=== PATIENT | female | born 1945 | race Caucasian/White ===

== ENCOUNTER → 2016-09-24 | Outpatient (CLI) | payer OTHER | LOC: MMPC 09:00 | PROVIDERS: ATTEND Internal Medicine | DX: Z79.01 Long term (current) use of anticoagulants (principal); Z51.81 Encounter for therapeutic drug level monitoring; Z95.2 Presence of prosthetic heart valve | CPT/HCPCS: 85610 ==

== ENCOUNTER → 2016-12-03 | Outpatient (CLI) | payer OTHER | LOC: MMPC 09:00 | PROVIDERS: ATTEND Internal Medicine | DX: Z79.01 Long term (current) use of anticoagulants (principal); Z51.81 Encounter for therapeutic drug level monitoring; Z95.2 Presence of prosthetic heart valve | CPT/HCPCS: 85610 ==

== ENCOUNTER → 2017-01-08 | Outpatient (CLI) | payer OTHER ==
[2017-01-09 06:06] LABS: EST GLOMERULAR FILTRATION > 60 (>60 ml/min/1.73m(2))
[2017-01-09 06:07] LABS: CALCIUM 8.9 mg/dL (8.7-10.7); SERUM ALBUMIN 3.8 g/dL (3.5-4.8)
== END ==
LOC: LAB 08:48
PROVIDERS: ATTEND Internal Medicine
DX: E11.9 Type 2 diabetes mellitus without complications (principal); E78.5 Hyperlipidemia, unspecified; F17.200 Nicotine dependence, unspecified, uncomplicated
CPT/HCPCS: 36415; 80053; 80061; 82043; 82550

== ENCOUNTER → 2017-01-09 | Outpatient (CLI) | payer OTHER | LOC: MMPC 11:11 | PROVIDERS: ATTEND Internal Medicine | DX: E11.9 Type 2 diabetes mellitus without complications (principal); I09.9 Rheumatic heart disease, unspecified; I10 Essential (primary) hypertension; E78.5 Hyperlipidemia, unspecified | CPT/HCPCS: 83037; 99214; G0463 ==

== ENCOUNTER → 2017-02-09 | Outpatient (CLI) | payer OTHER ==
--- NOTE | 2017-02-09 10:28 | DI ---
HISTORY: Dyspnea FINDINGS: The cardiac silhouette is not enlarged. There is prominence of the central vasculature. Midline sternotomy. No focal consolidation or pleural effusion. Prosthetic heart valve. IMPRESSION: 1. Prominence of the central vasculature. 2. No focal consolidation or pleural effusion.
== END ==
LOC: MOB RAD 09:53
PROVIDERS: ATTEND Physician Assistant Medical
DX: R06.00 Dyspnea, unspecified (principal); R06.02 Shortness of breath; J44.1 Chronic obstructive pulmonary disease with (acute) exacerbation; F17.200 Nicotine dependence, unspecified, uncomplicated
CPT/HCPCS: 71020; 94640; 99213; G0463

== ENCOUNTER → 2017-02-27 | Outpatient (CLI) | payer OTHER | LOC: MMPC 09:00 | PROVIDERS: ATTEND Physician Assistant Medical | DX: J41.1 Mucopurulent chronic bronchitis (principal); R09.02 Hypoxemia; J96.11 Chronic respiratory failure with hypoxia; F17.210 Nicotine dependence, cigarettes, uncomplicated | CPT/HCPCS: 99213; G0463 ==

== ENCOUNTER → 2017-03-01 | Outpatient (CLI) | payer OTHER | LOC: MMPC 09:00 | PROVIDERS: ATTEND Physician Assistant Medical | DX: J44.1 Chronic obstructive pulmonary disease with (acute) exacerbation (principal); R09.02 Hypoxemia | CPT/HCPCS: 99213; G0463 ==

== ENCOUNTER 2017-03-29 09:09 | Emergency (ER) | payer OTHER ==
[2017-03-29 10:18] LABS: BASOPHILS # (AUTO) 0.09 10*3/UL; BASOPHILS % (AUTO) 0.7 % (0-1); EOSINOPHILS # (AUTO) 0.12 10*3/UL; HEMATOCRIT 44.5 % (37.0-47.0); HEMOGLOBIN 15.2 g/dL (12.0-16.0); LYMPHOCYTES # (AUTO) 1.34 10*3/uL; MEAN CORPUSCULAR HEMOGLOBIN 25.1 PG (27-31); MEAN CORPUSCULAR HGB CONC 34.2 g/dL (33-37); MEAN CORPUSCULAR VOLUME 73.4 FL (81-99); MEAN PLATELET VOLUME 9.9 FL (7.4-12.2); MONOCYTES # (AUTO) 1.28 10*3/UL (0.3-0.8); MONOCYTES % (AUTO) 10.4 % (5-15); NEUTROPHILS # (AUTO) 9.47 10*3/UL; NEUTROPHILS % (AUTO) 76.6 % (50-80); RED BLOOD COUNT 6.06 10^6/uL (4.20-5.40)
[2017-03-29 10:21] LABS: PLATELET MORPHOLOGY COMMENT NORMAL MORPHOLOGY (NORM); RBC MORPHOLOGY COMMENT NORMAL MORPHOLOGY (NORM); WBC MORPHOLOGY COMMENT NORMAL MORPHOLOGY (NORM)
[2017-03-29 10:22] VITALS: RESP 16; TEMP 96.4
[2017-03-29 10:25] LABS: BLOOD UREA NITROGEN 13 mg/dL (7-22); BUN/CREATININE RATIO 18.57 (6-20); CALCIUM 9.3 mg/dL (8.7-10.7); EST GLOMERULAR FILTRATION > 60 (>60 ml/min/1.73m(2)); SERUM ALBUMIN 4.3 g/dL (3.5-4.8)
[2017-03-29] MEDS: NORMAL SALINE 10 ML SYRINGE FLUSH IVP PRN (10:25)
--- NOTE | 2017-03-29 11:07 | DI ---
EXTREMITY NON-VASCULAR LTD,03/29/2017 9:56 AM: Clinical History: Nontraumatic swelling of the right wrist. Previous Exam: None at this facility. Findings: Multiple grayscale and color Doppler sonographic images are obtained through the right wrist, and dem onstrate no evidence of solid mass nor cystic mass. Flexor tendons are unremarkable. Impression: No evidence of solid or cystic mass of the right wrist.
--- NOTE | 2017-03-29 11:10 | DI ---
XR WRIST 2 VW,03/29/2017 9:31 AM: Clinical History: Right wrist pain Previous Exam: None at this facility. Findings: 2 views of the right wrist are obtained, and demonstrate anatomic alignment without visible fracture. There is some faint calcification within the triangular fibrocartilage complex not seen well on the p rior exam. Advanced degenerative changes of the first carpometacarpal joint are noted which have advanced since the prior exam. Impression: 1. No acute bony injury. 2. Advanced degenerative osteoarthritis of the right first carpometacarpal joint. 3. Calcification of the triangular fibrocartilage complex. This most likely represents hydroxyapatite deposition.
--- NOTE | 2017-03-29 23:39 | PDOC ---
Upper Extremity Problem HPI - General Chief Complaint: Upper Extremity Problem/Injury Stated Complaint: wrist pain Date Seen by Provider: 03/29/17 Time Seen by Provider: 09:20 Source: POSITIVE: Patient Exam Limitations: POSITIVE: No limitations Nurse's Notes Reviewed & Considered: Yes - History of Present Illness Initial Comments: The patient is a 71-year-old female. She states that for the last 14 hours, approximately, she has had pain and some swelling to the dorsum of her right wrist. Patient states that she sustained a right wrist fracture 3 years ago in a fall; she did not have surgery for this injury. Patient has a history of having had a mitral valve replacement and is on Coumadin. She also has a history of tobacco abuse, COPD and type II diabetes mellitus. 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 She smokes about a pack of cigarettes per day. She has not noted any redness or warmth to her right wrist. 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) Severity: Moderate Quality: REPORTS: "Pain" Recent Injury: REPORTS: No Location at Time of Onset: REPORTS: Home Modifying Factors: REPORTS: Movement, Other (Pain is exacerbated by direct palpation over) Associated Symptoms: DENIES: Fever, Chills, Diaphoresis, Shortness of Breath, Difficulty Breathing, Chest Pain, Chest Discomfort, Nausea, Vomiting, Neck Pain , Jaw Pain, Back Pain, See Diagram, Other Similar Symptoms Previously: No Recent Care Received: Denies Any Prior Injuries Related to Current Complaint?: No - Patient Home Medications Home Medications: Home Medications Acetaminophen/Dp-Hydram HCl [Acetaminophen Pm Tablet] 1 each PO 5XW PRN #100 Aspirin 81 mg PO DAILY #30 tab 11/03/12 Calcium Carbonate/Vitamin D3 [Calcium 600 + Vit D 400 Caplet] 1 each PO DAILY # 30 11/03/12 Denosumab [Prolia] 1 ml SUBCUT every 6 months #0 ml 06/22/13 Tramadol HCl 1 tab PO QID PRN #120 tab 08/27/14 Atenolol 1 tab PO BID #180 tab 07/11/16 Atorvastatin Calcium [Lipitor] 1 tab PO DAILY #90 tab 07/11/16 Blood Sugar Diagnostic [Element Test Strips] 1 each IN BID #180 strip 07/11/16 Duloxetine HCl 1 cap PO DAILY #90 cap 07/11/16 Ezetimibe [Zetia] 1 tab PO QHS #90 tab 07/11/16 Fenofibrate [Tricor] 1 tab PO QHS #90 tab 07/11/16 Furosemide [Lasix] 1 tab PO DAILY #90 tab 07/11/16 Liraglutide [Victoza 2-Irvin] 1.8 mg SUBCUT DAILY #4 ml 07/11/16 Lisinopril 1 tab ORAL QD #90 tab 07/11/16 Metformin HCl 1 tab ORAL BID #180 tab 07/11/16 Pantoprazole Sodium [Protonix] 1 tab ORAL QD #90 tab 07/11/16 Pen Needle, Diabetic, Safety [Autoshield Duo Pen Needle] 1 each MC QD #100 unit 07/11/16 Potassium Chloride 1 cap PO QD #90 cap 07/11/16 Warfarin Sodium 1 - 1.5 tab PO QD #135 tab 07/11/16 Albuterol Sulfate [Proair Hfa] 2 puff INH Q4-6H #1 inhaler 03/01/17 Fluticasone/Vilanterol [Breo Ellipta 200-25 Mcg Inh] 1 each INH DAILY #1 puff - Patient Allergies Allergies/Adverse Reactions: Allergies Allergy/AdvReac Type Severity Reaction Status Date / Time cyclobenzaprine HCl AdvReac Intermediate DIZZINESS Verified 03/29/17 09:20 [From Flexeril] Past Medical History - heen HEENT History: Cataracts, Dentures/Partials Cardiovascular History: Hypertension, Previous NC, CAD, Arrhythmia, Valvular Heart Disease, Hyperlipidemia, Other (please comment) Additional Cardiovasular History: SVT, paroxysmal atrial fibrillation. OPEN HEART SURGERY Respiratory History: COPD, Home Oxygen Use, Other (please comment) Additional Respiratory History: CHRONIC TOBACCO USE Gastrointestinal History: GERD Genitourinary History: Denies History Endocrine History: Type 2 Diabetes (oral), Other (please comment) Additional Endocrine History: DIABETIC NEUROPATHY Musculoskeletal History: Arthritis, Back Pain, Back Injury, Other (please comment) Prosthesis or Implant: Yes (LOWER BACK FUSION, HEART VALVE) Additional Musculoskeletal History: RT HEMIPARESIS Neurological History: CVA, Traumatic Brain Injury Additional Neurological History: FELL AND HIT HEAD, RIGHT SIDE WEAKER Blood Disorders: Denies History Psychiatric History: Depression History of Sexually Transmitted Diseases: No Cancer History: Denies History In Past Year Been Physically Harmed or Verbally Threatened: No History of MDRO: No History of Other Communicable Diseases: No Tobacco Use: Current Every Day Smoker Alcohol Use: None Substance Use Type: None Previous Surgical History: Yes Type / Date of Surgery: BACK SURGERYOPEN HEART FOR MITRAL VALVE REPLACEMENTCOLONSCOPY Anesthesia Reactions: No Malignant Hyperthermia: No Significant Family History: Heart disease Past Medical History Reviewed: Reviewed - No Changes ROS - Limitations ROS Limitations: No Limitations Constitution: REPORTS: Denies Symptoms Cardiovascular: REPORTS: Denies Cardiac Symptoms Respiratory: REPORTS: Denies Resp Symptoms Neurological: REPORTS: Denies Neuro Symptoms Gastrointestinal: REPORTS: Denies GI Symptoms Endocrine: REPORTS: Denies Symptoms Musculoskeletal: REPORTS: Joint Pain (Pain dorsum right wrist with some swelling here) Genitourinary: REPORTS: Denies Symptoms Eyes: REPORTS: Denies Symptoms ENT: REPORTS: Denies Symptoms Skin: REPORTS: Denies Skin Symptoms Lympathic: REPORTS: Denies Lympathic Symptoms Immunologic: POSITIVE: Denies Symptoms Psychiatric: POSITIVE: Denies Psych Symptoms Upper Extremity Problem Exam - General Appearance General Appearance: POSITIVE: Alert, Cooperative, No Acute Distress, No Evidence of Trauma - Upper Extremity Upper Extremity: POSITIVE: Normal ROM, Tenderness, Swelling, See Diagram. NEGATIVE: Joints Normal (Swelling to the dorsum of the right wrist with pain on palpation here. There is no redness or warmth.), Limited Active ROM, Limited Passive ROM, Limited Functional ROM, Limited ROM d/t Pain, Axillary Lymphadenopathy, Positive Maura Test, Joint Swelling, Joint Effusion Vascular: POSITIVE: No Vascular Compromise, Full Pulses, Equal Pulses - Skin Skin: POSITIVE: Normal Color, Warm, Dry, No Rash - Neuro / Psych Peripheral Neuro Exam: POSITIVE: Sensation Normal. NEGATIVE: Motor Normal ( Some weakness to right upper extremity from previous stroke) Central Neuro Exam: POSITIVE: Oriented to Person, Oriented to Place, Oriented to Time, CN's Normal as Tested, Normal Speech, Normal Cognition, Appropriate Mood, Appropriate Affect - Neck/Back Neck / Back: POSITIVE: Normal Inspection - Respiratory / CVS Respiratory / CVS: POSITIVE: No Respiratory Distress, Breath Sounds Normal, Regular Rate & Rhythm, Heart Sounds Normal Peripheral Pulses: Radial (R): 2+, Radial (L): 2+ Images - Upper Extremities Upper Extremities: 1 - Some swelling and pain on palpation Upper Ext Problem Progress - Results Reviewed by me Xrays/CTs/US Reviewed by me: Yes Discussed with Radiologist: Yes Radiology Findings: X-ray shows prominent degenerative changes in the first carpal metacarpal joint. There is a small area of calcification just distal to the distal ulna at the ulna carpal joint. Ultrasound of wrist shows no fluid collections or solid or cystic masses. Lab Results Reviewed: Yes Lab Results:: Laboratory Results 03/29/17 Range/Units 10:12 WBC 12.35 H (4.8-10.8) 10^3/uL RBC 6.06 H (4.20-5.40) 10^6/uL Hgb 15.2 (12.0-16.0) g/dL Hct 44.5 (37.0-47.0) % MCV 73.4 L (81-99) FL MCH 25.1 L (27-31) PG MCHC 34.2 (33-37) g/dL RDW Std Deviation 47.0 (39-50) fL RDW Coeff of Karen 17.8 H (11.5-14.5) % Plt Count 399 H (140-350) 10*3/uL MPV 9.9 (7.4-12.2) FL Immature Gran % (Auto) 0.4 (0-5) % Neut % (Auto) 76.6 (50-80) % Lymph % (Auto) 10.9 (10-50) % [place] % (Auto) 10.4 (5-15) % Eos % (Auto) 1.0 (0-8) % Baso % (Auto) 0.7 (0-1) % Immature Gran # (Auto) 0.05 10*3/UL Neut # (Auto) 9.47 10*3/UL Lymph # (Auto) 1.34 10*3/uL [place] # (Auto) 1.28 H (0.3-0.8) 10*3/UL Eos # (Auto) 0.12 10*3/UL Baso # (Auto) 0.09 10*3/UL WBC Morphology Comment Normal morphology (NORM) Plt Morphology Comment Normal morphology (NORM) RBC Morph Comment Normal morphology (NORM) ESR 3 (0-20) MM/HR PT 22.7 H (9.7-11.4) secs INR 2.13 (0.00-5.90) N/A Sodium 138 (135-145) meq/L Potassium 3.8 (3.8-5.2) meq/L Chloride 100 (98-112) meq/L Carbon Dioxide 25 (23-33) meq/L Anion Gap 13 (5-20) BUN 13 (7-22) mg/dL Creatinine 0.7 (0.50-1.20) mg/dL Estimated GFR > 60 (>60 ml/min/1.73m(2)) BUN/Creatinine Ratio 18.57 (6-20) Glucose 180 H (78-110) mg/dL Calculated Osmolality 290.0 (267-292) mOsm/kg Calcium 9.3 (8.7-10.7) mg/dL Total Bilirubin 0.8 (0.3-1.2) mg/dL AST 32 (8-39) IU/L ALT 44 (9-52) IU/L Alkaline Phosphatase 60 (38-126) IU/L C-Reactive Protein 0.8 (0.0-0.9) mg/dL Total Protein 6.7 (6.1-8.0) g/dL Albumin 4.3 (3.5-4.8) g/dL Globulin 2.4 L (2.50-4.10) g/dL Albumin/Globulin Ratio 1.70 (1.3-2.0) mg/g - Patient's Progress Pain Medication Addressed: POSITIVE: Yes (Recommended Tylenol; discourage patient from taking nonsteroidal anti-inflammatory medications and she is on Coumadin.) School/Work Release Addressed: POSITIVE: Not Applicable Re-Examine Time:: 11:00 Re-Examine Comment: Velcro wrist splint placed which does seem to offer the patient some relief of discomfort. Status: POSITIVE: Unchanged, Re-Examined - Consult Counseled: POSITIVE: Patient, RE: Lab Results, RE: Radiology Results, RE: DX, RE : Need for F/U Patient Care Time - Estimated PCT Patient Care Time (In Minutes): 40 Vital Signs - VS Reviewed Vital Signs Reviewed: Yes Discharge Clinical Impression: Arthritis of wrist, right Discharge Disposition: Discharged to Home Condition: Good Patient Instructions Given at Discharge: Arthralgia (ED) Additional Instructions: I am not completely sure why you're having discomfort to your right wrist. X- ray shows degenerative changes and your symptoms might be due to degenerative arthritis. I see no evidence of infection, and there is no effusion or abscess on ultrasound. I would avoid medications such as Aleve, Advil and so forth, since you are on Coumadin. Please wear wrist splint. Take Tylenol for discomfort. Elevate hand and apply cool compresses. Follow-up with your primary care provider if not improving well within 3 or 4 days. Return here anytime if condition worsens in any way whatsoever. Follow Up With: BRIANA TAM [Primary Care Provider] - (Instructions as above. Follow-up with your primary care provider if not improving well in 3 or 4 days. Return here anytime if condition worsens in any way whatsoever.)
== END 2017-03-29 11:16 | disposition home or self-care (01) ==
LOC: ER 09:09
DX: M19.031 Primary osteoarthritis, right wrist (principal); R22.31 Localized swelling, mass and lump, right upper limb; J44.9 Chronic obstructive pulmonary disease, unspecified; E11.9 Type 2 diabetes mellitus without complications; I48.0 Paroxysmal atrial fibrillation; I63.8 Other cerebral infarction; I69.351 Hemiplegia and hemiparesis following cerebral infarction affecting right dominant side; M25.531 Pain in right wrist; Z95.2 Presence of prosthetic heart valve; Z79.01 Long term (current) use of anticoagulants; Z72.0 Tobacco use
CPT/HCPCS: 36415; 73100; 76882; 80053; 85025; 85610; 85652; 86140; 99283